=== PATIENT | female | born 1955 | race Caucasian/White ===

== ENCOUNTER → 2017-12-02 | Outpatient (CLI) | payer BC ==
--- NOTE | 2017-12-03 14:59 | MAMMOGRAPHY REPORT ---
BILATERAL DIGITAL DIAGNOSTIC MAMMOGRAM TOMOSYNTHESIS WITH CAD AND TARGETED BILATERAL ULTRASOUND: 12/02 CLINICAL HISTORY: The patient presents for short interval follow-up of bilateral breast masses which were noted at an outside institution. The patient has a family history of breast cancer including he r sister was diagnosed in her 30s. TECHNIQUE: Breast tomosynthesis in addition to standard 2D mammography was performed. Current study was also evaluated with a Computer Aided Detection (CAD) system. COMPARISON: Comparison is made to exams dated: 08/30/2017 mammogram, 12/17/2015 mammogram, and 5 mammogram. BREAST COMPOSITION: The tissue of both breasts is heterogeneously dense, which may obscure small mas ses. FINDINGS: There are no suspicious masses, calcifications, or areas of architectural distortion noted in either breast. There has been no significant interval change compared to the prior exams. Scatt ered benign-appearing left breast calcifications are again noted. A biopsy marker clip is again note d within the left breast. Numerous small circumscribed benign-appearing masses are noted scattered w ithin bilateral breasts, best seen on the tomosynthesis images, which are considered benign given the multiplicity and bilaterality and likely represent small cysts. Targeted ultrasound was performed of the area of the previously seen masses for which follow-up was r ecommended. In the right breast at 12:00 periareolar region, there is an oval anechoic benign simple cyst measuring 4 mm. Additionally, there is an oval anechoic benign simple cyst measuring 4 x 5 mm in the right breast at 12:00, 1 cm from the nipple. In the right breast at 1:00, approximately 4 cm from the nipple, there is an oval circumscribed parallel hypoechoic mass which measures 5 x 4 mm, not significantly changed compared to the August 2017 exam and likely represents a complicated cyst. In the right 3:00 breast, 4 cm from the nipple, there is a circumscribed anechoic benign simple cyst which measures 6 x 5 mm. In the left 9:00 breast, 3 cm from the nipple, there is an oval anechoic be nign simple cyst measuring 5 x 4 mm. Adjacent to this is another anechoic benign simple cyst measuri ng 3 x 3 mm. Another cyst with a thin internal septation measuring 6 x 5 mm is seen within the right 9:00 periareolar/subareolar breast. The findings are benign and compatible with cysts. No suspicio us solid masses were evident. IMPRESSION: ACR BI-RADS CATEGORY 2: BENIGN, TARGETED ULTRASOUND ACR BI-RADS CATEGORY 2: BENIGN Multiple small benign cysts seen bilaterally. There is no mammographic or targeted sonographic evide nce of malignancy. A 1 year screening mammogram is recommended. The patient has been verbally notifi ed of the results. Approximately 10% of breast cancers are not detected with mammography. A negative mammographic report should not delay biopsy if a clinically suggestive mass is present. Johana Moreno M.D. ah/:12/02/2017 15:11:34 Planting Material Remover: Ariane Crenshaw, [facility] letter sent: Normal 1/2 BI-RADS Code: ACR BI-RADS Category 2: Benign Ultrasound BI-RADS: ACR BI-RADS Category 2: Benign
== END | disposition home or self-care (01) ==
LOC: C.MAMM 11:04
PROVIDERS: ATTEND Family Medicine
DX: N60.01 Solitary cyst of right breast (principal); N60.02 Solitary cyst of left breast; Z80.3 Family history of malignant neoplasm of breast

== ENCOUNTER → 2018-02-16 | Outpatient (CLI) | payer BC ==
[2018-02-16 13:33] LABS: ALBUMIN 3.8 gm/dl (3.4-5.0); ALT/SGPT 96 U/L (12-78); AST/SGOT 65 U/L (15-37); BLOOD UREA NITROGEN 10 mg/dl (7-18); CALCIUM 8.9 mg/dl (8.5-10.1); CARBON DIOXIDE 29 mmol/L (21-32); GLUCOSE 223 mg/dl (70-99); POTASSIUM 4.2 mmol/L (3.5-5.1); SODIUM 136 mmol/L (136-145)
[2018-02-16 13:42] LABS: HEMOGLOBIN A1C 8.6 % (4.5-5.6)
[2018-02-16 13:44] LABS: ALKALINE PHOSPHATASE 104 U/L (45-117); CHOLESTEROL 124 mg/dl (0-200); LDL CHOLESTEROL CALCULATED 66 mg/dl; TOTAL PROTEIN 7.9 gm/dl (6.4-8.2)
== END | disposition home or self-care (01) ==
LOC: C.LABMFLN 08:22
PROVIDERS: ATTEND Family Medicine
DX: I10 Essential (primary) hypertension (principal); E78.5 Hyperlipidemia, unspecified; R73.9 Hyperglycemia, unspecified; T14.8XXA Other injury of unspecified body region, initial encounter; W57.XXXA Bitten or stung by nonvenomous insect and other nonvenomous arthropods, initial encounter; E04.1 Nontoxic single thyroid nodule

== ENCOUNTER → 2018-05-04 | Outpatient (CLI) | payer BC ==
--- NOTE | 2018-05-04 07:56 | DIAGNOSTIC IMAGING REPORT ---
(LIVER) ABDOMEN LIMITED HISTORY: 62 years-old Female R74.8 Elevated liver enzymes acutely elevated liver enzymes COMPARISON: None available TECHNIQUE: Multiple real-time sonographic images of the right upper quadrant of the abdomen were obtained assessing grayscale appearance and color flow FINDINGS: There is increased echogenicity of the liver with poor through transmission. No focal hepatic mass lesions or intrahepatic biliary ductal dilation. No marginal nodularity of the liver to suggest cirrhosis. The gallbladder appears unremarkable without cholelithiasis, wall thickening or pericholecystic fluid. The visualized pancreas appears unremarkable. Common bile duct measures 5 mm. The imaged right kidney is unremarkable with 9 mm hypodense lesion of the interpolar region suggesting renal cyst. IMPRESSION: 1. No cholelithiasis or sonographic evidence of acute cholecystitis. 2. No biliary ductal dilation. 3. Increased echogenicity of the liver suggests hepatic steatosis. The above report was generated using voice recognition software. It may contain grammatical, syntax or spelling errors. Electronically signed by: Max Umaña M.D. 05/04/2018 7:54 AM Dictated Date/Time: 05/04/2018 7:53 AM
== END | disposition home or self-care (01) ==
LOC: C.ULTR 07:20
PROVIDERS: ATTEND Family Medicine
DX: R74.8 Abnormal levels of other serum enzymes (principal)